=== PATIENT | female | born 1950 | race Caucasian/White ===

== ENCOUNTER 2016-12-13 14:57 | Emergency (ER) | payer MEDICARE, OTHER ==
[~2016-12-13 14:57] MED LIST: DOLOPHINE DPS10 MG PO; EFFEXOR XR75 MG PO; LYRICA150 MG PO; MYSOLINE50 MG PO; OXY IR DPS5 MG PO; SURFAK240 MG PO; SYNTHROID100 MCG PO; VITAMIN D-32000 UNI1 PO; VITAMIN E400 UNI1 PO; WELLBUTRIN XL150 MG PO; XANAX DPS0.25 MG PO; ZYRTEC10 MG PO
--- NOTE | 2016-12-20 15:15 | ER ---
ADMIT: 12/13/2016 RM/LOC: ER [facility] MR#: [id number] [address] [id number] ANNETTE LIMA [address] [place] [address] Emergency Room Report SEX: F AGE: 66 : 1950 DATE: 12/13/2016 ADDENDUM: The patient comes to the ER because she had a fever today at home and she has had a cough for the last 3 days. She is currently doing oral chemotherapy for lung cancer. She states she has felt a little bit fatigued in the last couple of days. On physical exam, she is alert. Her O2 saturation is normal. She does have a mild cough, but no respiratory distress. She denies any pain. She did have a fever of 101. Her lactic acid was 1.0. Her white count was normal. Hemoglobin 9.2. I did consult with Dr. Acevedo concerning treatment of this patient. Chest x-ray was negative for pneumonia. I then spoke with Dr. Covarrubias, who will put her on Zithromax and we taught her how to use an albuterol inhaler with a spacer. She is to return to the ER if any difficulty breathing or follow up with Dr. Aparicio on Thursday. Please see my T-sheet. MARISEL Mcguire / Johnny Acevedo MD / alysonl JOB #: [id number] CC: Johnny Acevedo MD, Attending Physician Alfonso Aparicio MD, Family Physician
== END 2016-12-13 18:35 | disposition still patient (30) ==
LOC: ER 14:57
DX: R50.9 Fever, unspecified (principal); R05 Cough; I10 Essential (primary) hypertension; Z86.718 Personal history of other venous thrombosis and embolism; Z85.118 Personal history of other malignant neoplasm of bronchus and lung; Z86.711 Personal history of pulmonary embolism; Z88.1 Allergy status to other antibiotic agents; Z88.6 Allergy status to analgesic agent; Z79.84 Long term (current) use of oral hypoglycemic drugs; Z79.01 Long term (current) use of anticoagulants; Z79.899 Other long term (current) drug therapy